=== PATIENT | male | born 1995 | race Caucasian/White ===

== ENCOUNTER 2024-09-12 12:37 | Emergency (ER) | payer OTHER ==
[~2024-09-12] VITALS: Ht 167.6 cm; Wt 83.4 kg
[~2024-09-12 12:37] MED LIST: CEPHALEXIN500 M1 PO; NALTREXONE HCL50 MG PO
[2024-09-12] MEDS ORDERED: fentaNYL citrate 100 MCG/2 ML VIAL IV ONE (13:00)
[2024-09-12] MEDS ORDERED: LACTATED RINGER'S 1,000 ML IV ONE (13:00)
[2024-09-12 13:28] LABS: BASOPHILS 0.2 % (0.2-1.2); EOSINOPHILS 0.1 % (0.8-7.0); LYMPHOCYTES 5.0 % (21.8-53.1); MCH 32.2 PG (25.7-32.2); MCHC 34.8 g/dL (32.3-36.5); MCV 92.4 fL (79.0-92.2); MONOCYTES 5.9 % (5.3-12.2); NEUTROPHILS 88.1 % (34.0-67.9); RBC 4.32 M/uL (4.63-6.08)
[2024-09-12 13:47] LABS: ALCOHOL, MEDICAL 156.0 ng/dL (<3); ALT (SGPT) 109.0 U/L (14-59); AST (SGOT) 96.0 U/L (15-37); GLOMERULAR FILTRATION RATE,EST 98.0 mL/min (>60); PROTEIN, TOTAL 6.8 g/dL (6.4-8.2); UREA NITROGEN 13.0 mg/dL (7-18)
[2024-09-12 14:14] LABS: INR 1.06 (0.80-1.30); PROTIME 13.1 Sec (11.2-14.2)
[2024-09-12 14:27] LABS: BLOOD/HGB, URINE MODERATE (Negative); KETONE, URINE NEGATIVE (Negative); LEUK ESTERASE, URINE NEGATIVE (negative); NITRITE, URINE NEGATIVE (negative)
[2024-09-12 14:31] LABS: EPITHELIAL CELLS, URINE SQUAMOUS 1+ /lpf (0-1+)
[2024-09-12 14:32] LABS: BACTERIA, URINE NONE SEEN /hpf (negative); CASTS, URINE NONE SEEN \\lpf; CRYSTALS, URINE NONE SEEN (0-1+); REFLEX CULTURE, URINE No (No)
[2024-09-12 14:42] LABS: AMPHETAMINES, URINE NEGATIVE (NEGATIVE); BARBITURATES, URINE NEGATIVE (NEGATIVE); BENZODIAZEPINE, URINE NEGATIVE (NEGATIVE); CANNABINOID, URINE NEGATIVE (NEGATIVE); COCAINE, URINE NEGATIVE (NEGATIVE); ECSTASY, URINE NEGATIVE (NEGATIVE); FENTANYL, URINE POSITIVE (NEGATIVE); METHADONE, URINE NEGATIVE (NEGATIVE); OPIATES, URINE NEGATIVE (NEGATIVE); OXYCODONE, URINE NEGATIVE (NEGATIVE); PHENCYCLIDINE, URINE NEGATIVE (NEGATIVE)
[2024-09-12 14:45] LABS: ABO O; ANTIBODY SCREEN NEGATIVE; RH POSITIVE
[2024-09-12 14:55] VITALS: BP 117/76
== END 2024-09-12 14:55 | disposition short-term general hospital (02) ==
LOC: ED 12:37
PROVIDERS: Emergency Medicine
DX: S22.43XA Multiple fractures of ribs, bilateral, initial encounter for closed fracture (principal); S27.2XXA Traumatic hemopneumothorax, initial encounter; S22.21XA Fracture of manubrium, initial encounter for closed fracture; S22.011A Stable burst fracture of first thoracic vertebra, initial encounter for closed fracture; S12.601A Unspecified nondisplaced fracture of seventh cervical vertebra, initial encounter for closed fracture; V29.99XA Rider (driver) (passenger) of other motorcycle injured in unspecified traffic accident, initial encounter; Z79.2 Long term (current) use of antibiotics
CPT/HCPCS: 36415; 70450; 71260; 72125; 74177; 80053; 80307; 81001; 83605; 85025; 85610; 85730; 86850; 86900; 86901; 96375; 99285-25; G0480; J2405; J3010; J7121; Q9967